=== PATIENT | female | born 1945 | race Caucasian/White ===

== ENCOUNTER 2020-11-16 15:44 | Emergency (ER) | payer OTHER ==
[~2020-11-16] VITALS: Ht 175.3 cm; Wt 107.0 kg
[~2020-11-16 15:44] MED LIST: ACETAMINOPHEN325 M1 RECTAL; APAP650 PO; ARIXTRA SUBQ; ASPIRIN325 PO; CAL-MAG-ZINC T1 EACH PO; CINNAMON PLUS1 EACH PO; CO Q-10100 MG PO; COLACE100 MG PO; CRANBERRY500 M1 PO; FISH OIL 1,4001 EACH PO; FLAX SEED OIL1000 MG PO; GARLIC OIL1 EACH PO; GINKGO BILOBA120 M1 PO; GLUCOPHAGE500 MG PO; HYDROCODON-ACE1 EAC7 PO; IBUPROFEN200 M2 PO; L-LYSINE500 M1 PO; MOM PO; NIACIN SR 250250 MG PO; OXECTA5 MG PO; VITAMIN C + RO500 MG PO; VITAMIN E400 UNI6 PO
[2020-11-16 15:55] VITALS: BP 171/73
[2020-11-16] MEDS ORDERED: CLEOCIN HCL300 MG PO (16:02)
== END 2020-11-16 16:06 | disposition home or self-care (01) ==
LOC: ER 15:44
DX: R21 Rash and other nonspecific skin eruption (principal); Z90.710 Acquired absence of both cervix and uterus; Z79.82 Long term (current) use of aspirin; Z79.84 Long term (current) use of oral hypoglycemic drugs; Z79.891 Long term (current) use of opiate analgesic; Z79.1 Long term (current) use of non-steroidal anti-inflammatories (NSAID); Z79.899 Other long term (current) drug therapy; Z87.891 Personal history of nicotine dependence; Z88.6 Allergy status to analgesic agent; Z88.0 Allergy status to penicillin